=== PATIENT | male | born 1980 | race Two or more races ===

== ENCOUNTER 2020-01-19 18:15 | Inpatient (IN) | payer MEDICARE, MEDICAID ==
[2020-01-19] MEDS ORDERED: RINGERS SOLUTION,LACTATED 1,000 ML IV ONE (19:18)
[2020-01-19] MEDS ORDERED: MORPHINE SULFATE 10 MG/ML INJ IV ONE (19:19)
[2020-01-19] MEDS ORDERED: ONDANSETRON HCL INJ/PF 4 MG/2 ML SDV IV ONE (19:19)
--- NOTE | 2020-01-19 19:21 | ER Document Report ---
ED Medical Screen (RME) - General Chief Complaint: Back Pain Stated Complaint: BACK PAIN Time Seen by Provider: 01/19/20 19:15 Primary Care Provider: LEON CURTIS MD [Primary Care Provider] - Follow up as needed Mode of Arrival: Medic Information source: Patient Notes: HPI; 39-year-old male past medical history significant for sickle cell presents to the emergency room complaining of back pain and a sickle cell flare that started yesterday. States he has been taking his Percocet without relief. He denies any trauma or injury to his back. PE: Alert and oriented x3. Mild distress noted. Lungs are clear to auscultation without rales, rhonchi, wheezes. Heart: Regular rate rhythm without murmurs, rubs, gallops. Unable to do full exam in triage I have greeted and performed a rapid initial assessment of this patient. A comprehensive ED assessment and evaluation of the patient, analysis of test results and completion of the medical decision making process will be conducted by additional ED providers. I have specifically instructed the patient or family members with the patient to immediately return to any nursing staff should anything change in the patient's condition or with their chief complaint. TRAVEL OUTSIDE OF THE [place] IN LAST 30 DAYS: No - Related Data Allergies/Adverse Reactions: ampicillin [Ampicillin] Allergy (Mild, Verified 05/20/16 05:00) iodine [Iodine] Allergy (Verified 01/07/16 16:54) Past Medical History - Past Medical History Cardiac Medical History: Reports: Hx Heart Murmur Pulmonary Medical History: Reports: Hx Pneumonia Neurological Medical History: Denies: Hx Seizures Skin Medical History: Denies Hx MRSA Psychiatric Medical History: Denies: Hx Depression Past Surgical History: Reports: Hx Cholecystectomy, Hx Tonsillectomy - Immunizations Hx Diphtheria, Pertussis, Tetanus Vaccination: No Physical Exam - Vital signs Vitals: Temp Pulse Resp BP Pulse Ox 99.6 F 90 16 116/60 92 01/19/20 18:50 01/19/20 18:50 01/19/20 18:50 01/19/20 18:50 01/19/20 18:50 Course - Vital Signs Vital signs: Temp Pulse Resp BP Pulse Ox 99.6 F 90 16 116/60 92 01/19/20 18:50 01/19/20 18:50 01/19/20 18:50 01/19/20 18:50 01/19/20 18:50 Doctor's Discharge - Discharge Referrals: LEON CURTIS MD [Primary Care Provider] - Follow up as needed
[2020-01-19 20:52] LABS: ALBUMIN 5.3 g/dL (3.5-5.0); ALKALINE PHOSPHATASE 136 U/L (38-126); ANION GAP 9 (5-19); ASPARTATE AMINO TRANSFERASE 69 U/L (17-59); BILIRUBIN,DIRECT 2.3 mg/dL (0.0-0.4); BLOOD UREA NITROGEN 18 mg/dL (7-20); CALCIUM 9.7 mg/dL (8.4-10.2); CARBON DIOXIDE 24 mmol/L (22-30); CHLORIDE 104 mmol/L (98-107); GLUCOSE 117 mg/dL (75-110); POTASSIUM 5.1 mmol/L (3.6-5.0); TOTAL PROTEIN 8.6 g/dL (6.3-8.2)
[2020-01-19 22:11] LABS: HEMOGLOBIN 9.1 g/dL (13.5-17.0); MEAN CORPUSCULAR HEMOGLOBIN 45.6 pg (27.0-33.4); MEAN CORPUSCULAR HGB CONC 36.3 g/dL (32.0-36.0); PLATELET COUNT 320 10^3/uL (150-450); RED BLOOD COUNT 1.99 10^6/uL (4.35-5.55); RED CELL DISTRIBUTION WIDTH 15.9 % (11.5-14.0); RETICULOCYTE COUNT (AUTO) 15.11 % (0.66-2.85); WHITE BLOOD COUNT 11.4 10^3/uL (4.0-10.5)
[2020-01-19] MEDS ORDERED: HYDROMORPHONE HCL INJ/PF 2 MG/ML AMPULE IV ONE ×2 (22:19→23:49)
--- NOTE | 2020-01-19 22:24 | ER Document Report ---
ED General - General Chief Complaint: Sickle Cell Crisis Stated Complaint: BACK PAIN Time Seen by Provider: 01/19/20 19:15 Mode of Arrival: Medic Notes: Patient is a 39-year-old male with a history of sickle cell disease who comes emergency department for chief complaint of sharp pain in his back and worsening generalized body pain that started yesterday. He states he takes Percocet and he has been taking this without any relief. He denies trauma or injury to the back. He does report some vague shortness of breath and pain across his chest, denies headache, denies fever, denies vomiting. He follows with Dr. Narayan, he denies smoking, alcohol, recreational drugs, he denies any medical history other than sickle cell disease. TRAVEL OUTSIDE OF THE [place] IN LAST 30 DAYS: No - Related Data Allergies/Adverse Reactions: ampicillin [Ampicillin] Allergy (Mild, Verified 05/20/16 05:00) iodine [Iodine] Allergy (Verified 01/07/16 16:54) Home Medications: pcn, percocet Past Medical History - General Information source: Patient - Social History Smoking Status: Never Smoker Frequency of alcohol use: None Drug Abuse: None Lives with: Family Family History: Reviewed & Not Pertinent Patient has homicidal ideation: No - Past Medical History Cardiac Medical History: Reports: Hx Heart Murmur Pulmonary Medical History: Reports: Hx Pneumonia Neurological Medical History: Denies: Hx Seizures Skin Medical History: Denies Hx MRSA Psychiatric Medical History: Denies: Hx Depression Past Surgical History: Reports: Hx Cholecystectomy, Hx Tonsillectomy - Immunizations Hx Diphtheria, Pertussis, Tetanus Vaccination: No Hx Pneumococcal Vaccination: 04/11/15 Review of Systems - Review of Systems Constitutional: See HPI EENT: No symptoms reported Cardiovascular: No symptoms reported Respiratory: No symptoms reported Gastrointestinal: No symptoms reported Genitourinary: No symptoms reported Male Genitourinary: No symptoms reported Musculoskeletal: See HPI Skin: No symptoms reported Hematologic/Lymphatic: No symptoms reported Neurological/Psychological: No symptoms reported Physical Exam - Vital signs Vitals: Temp Pulse Resp BP Pulse Ox 99.6 F 90 16 116/60 92 01/19/20 18:50 01/19/20 18:50 01/19/20 18:50 01/19/20 18:50 01/19/20 18:50 - Notes Notes: GENERAL: Patient appears to be in pain, occasionally shifting uncomfortably, occasionally groaning. He is responsive and alert HEAD: Normocephalic, atraumatic. EYES: Pupils equal, round, and reactive to light. Extraocular movements intact. Sclera slightly icteric. ENT: Oral mucosa moist, tongue midline. Oropharynx unremarkable. Airway patent. NECK: Full range of motion. Supple. Trachea midline. No lymphadenopathy. LUNGS: Clear to auscultation bilaterally, no wheezes, rales, or rhonchi. No respiratory distress. Non-tender chest wall. HEART: Regular rate and rhythm. No murmur ABDOMEN: Soft, non-tender. Non-distended. EXTREMITIES: Moves all 4 extremities spontaneously. No edema, normal radial and dorsalis pedis pulses bilaterally. No cyanosis. BACK: no cervical, thoracic, lumbar midline tenderness. No saddle anesthesia, normal distal neurovascular exam. Moves all extremities in full range of motion. NEUROLOGICAL: Alert and oriented x3. Normal speech. Cranial nerves II through XII grossly intact. Strength 5/5 in all extremities. SKIN: Warm, dry, normal turgor. No rashes or lesions noted. Course - Re-evaluation Re-evalutation: Patient is obviously uncomfortable on exam but his lungs are clear, abdomen soft, he is not tachycardic, febrile, or toxic in appearance. He does have slight icteric appearance of the sclera. CBC shows borderline leukocytosis, hemoglobin with anemia similar to prior, reticulocyte count is elevated. Bilirubin is elevated especially indirect bilirubin suggesting hemolysis. Again abdomen is soft and benign on reevaluation, LFTs unremarkable, alk phos unremarkable. Patient has had a cholecystectomy. Chest x-ray with no acute findings, urinalysis unremarkable. On reevaluation patient is more comfortable but still has a lot of pain es pecially with movements. Based on his discomfort I discussed with patient, will discuss with hospitalist for admission. Patient follows with Dr. Jolly, Dr. Guzman is physical education teacher for him. I called spoke with Dr. Guzman, patient excepted to telemetry for admission. 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 Narayan). - Vital Signs Vital signs: Temp Pulse Resp BP Pulse Ox 99.6 F 90 20 113/62 99 01/19/20 18:50 07/10/20 18:50 01/20/20 02:00 01/20/20 02:00 01/20/20 02:00 - Laboratory Result Diagrams: 01/19/20 21:44 01/19/20 20:23 Laboratory results interpreted by me: 01/19/20 01/19/20 01/19/20 20:23 21:44 23:50 WBC 11.4 H RBC 1.99 L Hgb 9.1 L Hct 25.0 L MCV 126 H MCH 45.6 H MCHC 36.3 H RDW 15.9 H Reticulocyte # 0.300 H Basophils % (Manual) 3 H Absolute Eos (Manual) 0.7 H Abs Basophils (Manual) 0.3 H Retic Count (auto) 15.11 H Sodium 136.9 L Potassium 5.1 H Glucose 117 H Total Bilirubin 10.0 H Direct Bilirubin 2.3 H AST 69 H Alkaline Phosphatase 136 H Total Protein 8.6 H Albumin 5.3 H Urine Urobilinogen 4.0 H - EKG Interpretation by Me Additional EKG results interpreted by me: EKG shows sinus rhythm at a rate of 78, QTc 474. There appear to be some Q waves laterally and nonspecific intraventricular conduction delay, however this is unchanged from prior. No T wave inversions or ST segment changes in consecutive leads. Discharge - Discharge Clinical Impression: Sickle cell pain crisis Condition: Stable Disposition: ADMITTED INPATIENT Admitting Provider: Thomas Jolly Unit Admitted: Telemetry
[2020-01-19 22:34] LABS: ABSOLUTE LYMPHOCYTES# (MANUAL) 3.1 10^3/uL (0.5-4.7); BASOPHILS % (MANUAL) 3 % (0-2); EOSINOPHILS % (MANUAL) 6 % (0-6); LYMPHOCYTES % (MANUAL) 27 % (13-45); MONOCYTES % (MANUAL) 9 % (3-13); NUCLEATED RED BLOOD CELLS 5 /100 WBC (0); SEGMENTED NEUTROPHILS % (MAN) 55 % (42-78); TOTAL CELLS COUNTED 100
[2020-01-19 22:35] LABS: ANISOCYTOSIS 1+; HYPERSEGMENTED NEUTROPHILS PRESENT
[2020-01-19 22:36] LABS: PLATELET COMMENT ADEQUATE
[2020-01-19 22:47] LABS: BURR CELLS SLIGHT; OVALOCYTES 1+; POLYCHROMASIA SLIGHT; TARGET CELLS 1+
[2020-01-19 22:49] LABS: MEAN CORPUSCULAR VOLUME 126 fl (80-97)
[2020-01-19] MEDS ORDERED: ONDANSETRON HCL INJ/PF 4 MG/2 ML SDV ONE (23:02)
--- NOTE | 2020-01-19 23:14 | RADIOLOGY REPORT (SQ) ---
EXAM DESCRIPTION: X-ray, single AP portable view of the chest CLINICAL HISTORY: 39 years Male, sickle cell crisis, chest pain COMPARISON: Two views of the chest May 19, 2016 FINDINGS: Lungs: Ill-defined patchy calcification is seen projecting over the left heart border. The lungs are clear. No pneumothorax or pleural effusion. Mediastinum: Heart size is enlarged. This has increased in size when compared to the previous exam. Left chest port is in place with the tip of the catheter in the superior vena cava. There is splaying of the lisseth suggesting atrial enlargement. Bones: Osseous structures are stable IMPRESSION: Interval increase in size of the heart which is enlarged. Ill-defined calcifications projecting over the left heart border. Is unclear if this is within the lung or the myocardium. No pneumonia or edema.
[2020-01-20 00:10] LABS: APPEARANCE,URINE CLEAR; BILIRUBIN,URINE NEGATIVE (NEGATIVE); COLOR,URINE YELLOW; GLUCOSE, URINE NEGATIVE (NEGATIVE); KETONES,URINE NEGATIVE (NEGATIVE); LEUKOCYTE ESTERASE,URINE NEGATIVE (NEGATIVE); NITRITE,URINE NEGATIVE (NEGATIVE); PROTEIN,URINE NEGATIVE (NEGATIVE); URINE SPECIFIC GRAVITY 1.011
[2020-01-20] MEDS ORDERED: ACETAMINOPHEN 325 MG TABLET PO PRN (02:31)
[2020-01-20] MEDS ORDERED: ONDANSETRON HCL INJ/PF 4 MG/2 ML SDV IV PRN (02:31)
[2020-01-20] MEDS: HYDROMORPHONE HCL INJ/PF 2 MG/ML AMPULE IV PRN ×3 (04:19→20:04)
[2020-01-20] MEDS: PANTOPRAZOLE SODIUM 40 MG TABLET.DR PO SCH (06:06)
[2020-01-20] MEDS: NORMAL SALINE 1000 ML 1,000 ML IV PRN ×3 (06:51→23:54)
--- NOTE | 2020-01-20 09:53 | EKG REPORT ---
SEVERITY:- ABNORMAL ECG - SINUS RHYTHM NONSPECIFIC INTRAVENTRICULAR CONDUCTION DELAY LATERAL INFARCT, OLD CONSIDER ANTEROSEPTAL INFARCT LA ABNORMALITY : Confirmed by: Jamal Walker MD 20-Jan-2020 09:52:31
[2020-01-20] MEDS: DOCUSATE SODIUM 100 MG CAPSULE PO SCH (10:03)
[2020-01-20] MEDS: ENOXAPARIN SODIUM INJ 40 MG/0.4 ML DISP.SYRIN SUBCUT SCH (10:03)
[2020-01-20] MEDS ORDERED: POLYETHYLENE GLYCOL 3350 POWDER 17 GM/1 PACKET PO PRN (10:42)
--- NOTE | 2020-01-20 11:05 | PDOC CONSULTATION ---
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 Hemoglobin is 9. He is on Dilaudid 1 mg right now and still having considerable pain. Past Medical History Cardiac Medical History: Reports: Heart Murmur Pulmonary Medical History: Reports: Pneumonia Neurological Medical History: Denies: Seizures Psychiatric Medical History: Denies: Depression Hematology: Reports: Anemia, Sickle Cell Disease Past Surgical History Past Surgical History: Reports: Cholecystectomy, Tonsillectomy Social History Information Source: Patient Lives with: Family Smoking Status: Never Smoker Frequency of Alcohol Use: None Hx Recreational Drug Use: No Drugs: None Hx Prescription Drug Abuse: No - Advance Directive Resuscitation Status: Full Code Family History Family History: Reviewed & Not Pertinent Parental Family History Reviewed: Yes Children Family History Reviewed: Yes Sibling(s) Family History Reviewed.: Yes Medication/Allergy Home Medications: Hydroxyurea 1,000 mg PO BID #60 capsule 05/22/16 Penicillin V Potassium [Penicillin Vk 500 mg Tablet] 500 mg PO BID #60 tablet 05/22/16 Acetaminophen [Tylenol 325 mg Tablet] 650 mg PO Q4HP PRN 01/20/20 Folic Acid 1 mg PO DAILY 01/20/20 Allergies/Adverse Reactions: ampicillin [Ampicillin] Allergy (Mild, Verified 05/20/16 05:00) iodine [Iodine] Allergy (Verified 01/07/16 16:54) Review of Systems Constitutional: ABSENT: chills, fever(s), headache(s), weight gain, weight loss Eyes: ABSENT: visual disturbances Ears: ABSENT: hearing changes Cardiovascular: ABSENT: chest pain, dyspnea on exertion, edema, orthropnea, palpitations Respiratory: ABSENT: cough, hemoptysis Gastrointestinal: ABSENT: abdominal pain, constipation, diarrhea, hematemesis, hematochezia, nausea, vomiting Genitourinary: ABSENT: dysuria, hematuria Musculoskeletal: ABSENT: joint swelling Integumentary: ABSENT: rash, wounds Neurological: ABSENT: abnormal gait, abnormal speech, confusion, dizziness, focal weakness, syncope Psychiatric: ABSENT: anxiety, depression, homidical ideation, suicidal ideation Endocrine: ABSENT: cold intolerance, heat intolerance, polydipsia, polyuria Hematologic/Lymphatic: ABSENT: easy bleeding, easy bruising Physical Exam Vital Signs: Temp Pulse Resp BP Pulse Ox 98.1 F 84 14 112/62 93 01/20/20 07:28 01/20/20 07:28 01/20/20 07:28 01/20/20 07:28 01/20/20 07:28 Intake & Output 01/19/20 01/20/20 01/21/20 06:59 06:59 06:59 Intake Total 1000 Output Total 975 Balance 25 Weight 89.6 kg General appearance: PRESENT: no acute distress, well-developed, well-nourished Head exam: PRESENT: atraumatic, normocephalic Eye exam: PRESENT: conjunctiva pink, EOMI, PERRLA. ABSENT: scleral icterus Ear exam: PRESENT: normal external ear exam Mouth exam: PRESENT: moist, tongue midline Neck exam: ABSENT: carotid bruit, JVD, lymphadenopathy, thyromegaly Respiratory exam: PRESENT: clear to auscultation arron. ABSENT: rales, rhonchi, wheezes Cardiovascular exam: PRESENT: RRR. ABSENT: diastolic murmur, rubs, systolic murmur Pulses: PRESENT: normal dorsalis pedis pul Vascular exam: PRESENT: normal capillary refill GI/Abdominal exam: PRESENT: normal bowel sounds, soft. ABSENT: distended, guarding, mass, organolmegaly, rebound, tenderness Rectal exam: PRESENT: deferred Extremities exam: PRESENT: full ROM. ABSENT: calf tenderness, clubbing, pedal edema Neurological exam: PRESENT: alert, awake, oriented to person, oriented to place, oriented to time, oriented to situation, CN II-XII grossly intact. ABSENT: motor sensory deficit Psychiatric exam: PRESENT: appropriate affect, normal mood. ABSENT: homicidal ideation, suicidal ideation Skin exam: PRESENT: dry, intact, warm. ABSENT: cyanosis, rash Results Laboratory Results: 01/19/20 21:44 01/19/20 20:23 01/19/20 01/19/20 01/19/20 20:23 21:44 23:50 WBC 11.4 H RBC 1.99 L Hgb 9.1 L Hct 25.0 L MCV 126 H MCH 45.6 H MCHC 36.3 H RDW 15.9 H Plt Count 320 Seg Neutrophils % Not Reportable Retic Count (auto) 15.11 H Sodium 136.9 L Potassium 5.1 H Chloride 104 Carbon Dioxide 24 Anion Gap 9 BUN 18 Creatinine 0.77 Est GFR ( Amer) > 60 Glucose 117 H Calcium 9.7 Total Bilirubin 10.0 H AST 69 H Alkaline Phosphatase 136 H Total Protein 8.6 H Albumin 5.3 H Urine Color YELLOW Urine Appearance CLEAR Urine pH 6.0 Ur Specific [place] 1.011 Urine Protein NEGATIVE Urine Glucose (UA) NEGATIVE Urine Ketones NEGATIVE Urine Blood NEGATIVE Urine Nitrite NEGATIVE Ur Leukocyte Esterase NEGATIVE Urine WBC (Auto) 0 Urine RBC (Auto) 1 01/19/20 21:44 Troponin I < 0.012 Impressions: Chest X-Ray 01/19/20 22:20 IMPRESSION: Interval increase in size of the heart which is enlarged. Ill-defined calcifications projecting over the left heart border. Is unclear if this is within the lung or the myocardium. No pneumonia or edema. Assessment & Plan - Diagnosis (1) Sickle cell pain crisis Is this a current diagnosis for this admission?: Yes Plan: Sickle cell pain crisis, increase Dilaudid 2 mg IV every 2 hours. Continue other supportive measures. K pad for comfort. 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 - Time Time Spent: 50 to 70 Minutes - Inpatient Certification Based on my medical assessment, after consideration of the patient's comorbidities, presenting symptoms, or acuity I expect that the services needed warrant INPATIENT care.: Yes I certify that my determination is in accordance with my understanding of Medicare's requirements for reasonable and necessary INPATIENT services [42 CFR 412.3e].: Yes Medical Necessity: Need For IV Fluids, Need for Pain Control
--- NOTE | 2020-01-20 12:04 | PDOC H&P ---
History of Present Illness Admission Date/PCP: 01/20/20 02:37 LEON CURTIS Patient complains of: Sickle cell crisis History of Present Illness: BELLO HUI is a 39 year old male Is a 39-year-old male with a patient of Dr. Curtis came to the emergency dep artment with acute complaint of back pain and body ache and patient's diagnosed with this acute sickle cell crisis with a reticulocyte count was elevated Patient was giving the IV pain medications and IV fluid and admitting in the hospital Patient is otherwise feeling better Patient still have a pain currently requiring IV pain medications Patient also seen by game protector Patient's denied any fever no chills Patient's denied any contact with any COVID Denied any respiratory symptoms Past Medical History Cardiac Medical History: Reports: Heart Murmur Pulmonary Medical History: Reports: Pneumonia Neurological Medical History: Denies: Seizures Psychiatric Medical History: Denies: Depression Hematology: Reports: Anemia, Sickle Cell Disease Past Surgical History Past Surgical History: Reports: Cholecystectomy, Tonsillectomy Social History Information Source: Patient Lives with: Family Smoking Status: Never Smoker Frequency of Alcohol Use: None Hx Recreational Drug Use: No Drugs: None Hx Prescription Drug Abuse: No - Advance Directive Resuscitation Status: Full Code Family History Family History: Reviewed & Not Pertinent Parental Family History Reviewed: Yes Children Family History Reviewed: Yes Sibling(s) Family History Reviewed.: Yes Medication/Allergy Home Medications: Hydroxyurea 1,000 mg PO BID #60 capsule 05/22/16 Penicillin V Potassium [Penicillin Vk 500 mg Tablet] 500 mg PO BID #60 tablet 05/22/16 Acetaminophen [Tylenol 325 mg Tablet] 650 mg PO Q4HP PRN 01/20/20 Folic Acid 1 mg PO DAILY 01/20/20 Allergies/Adverse Reactions: ampicillin [Ampicillin] Allergy (Mild, Verified 05/20/16 05:00) iodine [Iodine] Allergy (Verified 01/07/16 16:54) Review of Systems Constitutional: ABSENT: chills, fever(s), headache(s), weight gain, weight loss Eyes: ABSENT: visual disturbances Ears: ABSENT: hearing changes Cardiovascular: ABSENT: chest pain, dyspnea on exertion, edema, orthropnea, palpitations Respiratory: ABSENT: cough, hemoptysis Gastrointestinal: ABSENT: abdominal pain, constipation, diarrhea, hematemesis, hematochezia, nausea, vomiting Genitourinary: ABSENT: dysuria, hematuria Musculoskeletal: ABSENT: joint swelling Integumentary: ABSENT: rash, wounds Neurological: ABSENT: abnormal gait, abnormal speech, confusion, dizziness, focal weakness, syncope Psychiatric: ABSENT: anxiety, depression, homidical ideation, suicidal ideation Endocrine: ABSENT: cold intolerance, heat intolerance, menstrual abnormalities, polydipsia, polyuria Hematologic/Lymphatic: ABSENT: easy bleeding, easy bruising, lymphadenopathy Physical Exam Vital Signs: Temp Pulse Resp BP Pulse Ox 98.1 F 84 14 112/62 93 01/20/20 07:28 01/20/20 07:28 01/20/20 07:28 01/20/20 07:28 01/20/20 07:28 Intake & Output 01/19/20 01/20/20 01/21/20 06:59 06:59 06:59 Intake Total 1000 Output Total 975 Balance 25 Weight 89.6 kg General appearance: PRESENT: no acute distress, well-developed, well-nourished Head exam: PRESENT: atraumatic, normocephalic Eye exam: PRESENT: conjunctiva pink, EOMI, PERRLA. ABSENT: scleral icterus Ear exam: PRESENT: normal external ear exam Mouth exam: PRESENT: moist, tongue midline Neck exam: PRESENT: full ROM. ABSENT: carotid bruit, JVD, lymphadenopathy, thyromegaly Respiratory exam: PRESENT: clear to auscultation arron Cardiovascular exam: PRESENT: RRR. ABSENT: diastolic murmur, rubs, systolic murmur Pulses: PRESENT: normal dorsalis pedis pul, +2 pedal pulses bilateral Vascular exam: PRESENT: normal capillary refill GI/Abdominal exam: PRESENT: normal bowel sounds, soft. ABSENT: distended, guarding, mass, organolmegaly, rebound, tenderness Rectal exam: PRESENT: deferred Neurological exam: PRESENT: alert, awake, oriented to person, oriented to place, oriented to time, oriented to situation, CN II-XII grossly intact. ABSENT: motor sensory deficit Psychiatric exam: PRESENT: appropriate affect, normal mood. ABSENT: homicidal ideation, suicidal ideation Skin exam: PRESENT: dry, intact, warm. ABSENT: cyanosis, rash Results Laboratory Results: 01/19/20 21:44 01/19/20 20:23 07/10/20 07/10/20 07/10/20 20:23 21:44 23:50 WBC 11.4 H RBC 1.99 L Hgb 9.1 L Hct 25.0 L MCV 126 H MCH 45.6 H MCHC 36.3 H RDW 15.9 H Plt Count 320 Seg Neutrophils % Not Reportable Retic Count (auto) 15.11 H Sodium 136.9 L Potassium 5.1 H Chloride 104 Carbon Dioxide 24 Anion Gap 9 BUN 18 Creatinine 0.77 Est GFR ( Amer) > 60 Glucose 117 H Calcium 9.7 Total Bilirubin 10.0 H AST 69 H Alkaline Phosphatase 136 H Total Protein 8.6 H Albumin 5.3 H Urine Color YELLOW Urine Appearance CLEAR Urine pH 6.0 Ur Specific [place] 1.011 Urine Protein NEGATIVE Urine Glucose (UA) NEGATIVE Urine Ketones NEGATIVE Urine Blood NEGATIVE Urine Nitrite NEGATIVE Ur Leukocyte Esterase NEGATIVE Urine WBC (Auto) 0 Urine RBC (Auto) 1 01/19/20 21:44 Troponin I < 0.012 Impressions: Chest X-Ray 01/19/20 22:20 IMPRESSION: Interval increase in size of the heart which is enlarged. Ill-defined calcifications projecting over the left heart border. Is unclear if this is within the lung or the myocardium. No pneumonia or edema. 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 - Other hemoglobinopathies Is this a current diagnosis for this admission?: Yes (3) Constipation Is this a current diagnosis for this admission?: Yes - Time Time Spent: 30 to 50 Minutes Medications reviewed and adjusted accordingly: Yes Anticipated discharge: Home Within: Other - Inpatient Certification Based on my medical assessment, after consideration of the patient's comorbidities, presenting symptoms, or acuity I expect that the services needed warrant INPATIENT care.: Yes I certify that my determination is in accordance with my understanding of Medicare's requirements for reasonable and necessary INPATIENT services [42 CFR 412.3e].: Yes Medical Necessity: Failure to Improve With Outpatient Therapy, Need For IV Fluids, Need for Pain Control Post Hospital Care: D/C Buffet Server Documentation - Plan Summary Plan Summary: Admit the patient in the telemetry bed IV pain medications IV fluids Consult game protector To the cultures to rule out any underlying infections
[2020-01-20 13:19] LABS: APPEARANCE,URINE CLEAR; BILIRUBIN,URINE NEGATIVE (NEGATIVE); COLOR,URINE YELLOW; GLUCOSE, URINE NEGATIVE (NEGATIVE); KETONES,URINE NEGATIVE (NEGATIVE); LEUKOCYTE ESTERASE,URINE NEGATIVE (NEGATIVE); NITRITE,URINE NEGATIVE (NEGATIVE); PROTEIN,URINE NEGATIVE (NEGATIVE)
[2020-01-20] MEDS: OXYCODONE-ACETAMINOPHEN 5-325 MG TABLET PO PRN (23:53)
[2020-01-21] MEDS: HYDROMORPHONE HCL INJ/PF 2 MG/ML AMPULE IV PRN ×6 (01:13→23:25)
[2020-01-21] MEDS: PANTOPRAZOLE SODIUM 40 MG TABLET.DR PO SCH (05:03)
[2020-01-21 05:25] LABS: HEMATOCRIT 22.3 % (37.9-51.0); MEAN CORPUSCULAR HEMOGLOBIN 43.8 pg (27.0-33.4); MEAN CORPUSCULAR HGB CONC 35.5 g/dL (32.0-36.0); MEAN CORPUSCULAR VOLUME 124 fl (80-97); PLATELET COUNT 304 10^3/uL (150-450); RED BLOOD COUNT 1.81 10^6/uL (4.35-5.55); RED CELL DISTRIBUTION WIDTH 17.2 % (11.5-14.0); WHITE BLOOD COUNT 12.5 10^3/uL (4.0-10.5)
[2020-01-21 05:39] LABS: ALBUMIN 4.3 g/dL (3.5-5.0); ALKALINE PHOSPHATASE 97 U/L (38-126); ANION GAP 7 (5-19); ASPARTATE AMINO TRANSFERASE 49 U/L (17-59); BILIRUBIN,DIRECT 1.5 mg/dL (0.0-0.4); BILIRUBIN,TOTAL 8.5 mg/dL (0.2-1.3); BLOOD UREA NITROGEN 10 mg/dL (7-20); CALCIUM 9.2 mg/dL (8.4-10.2); CARBON DIOXIDE 24 mmol/L (22-30); CHLORIDE 108 mmol/L (98-107); GLUCOSE 91 mg/dL (75-110); POTASSIUM 4.3 mmol/L (3.6-5.0); TOTAL PROTEIN 6.6 g/dL (6.3-8.2)
[2020-01-21 06:07] LABS: ABSOLUTE LYMPHOCYTES# (MANUAL) 4.8 10^3/uL (0.5-4.7); ABSOLUTE MONOCYTES # (MANUAL) 0.6 10^3/uL (0.1-1.4); ANISOCYTOSIS 1+; BASOPHILS % (MANUAL) 0 % (0-2); EOSINOPHILS % (MANUAL) 3 % (0-6); LYMPHOCYTES % (MANUAL) 38 % (13-45); MONOCYTES % (MANUAL) 5 % (3-13); NUCLEATED RED BLOOD CELLS 6 /100 WBC (0); PLATELET COMMENT ADEQUATE; SEGMENTED NEUTROPHILS % (MAN) 54 % (42-78); TOTAL CELLS COUNTED 100
[2020-01-21 06:14] LABS: HYPERSEGMENTED NEUTROPHILS PRESENT
[2020-01-21 06:15] LABS: POLYCHROMASIA 1+; SICKLE RED CELLS 1+; TARGET CELLS SLIGHT
[2020-01-21] MEDS: NORMAL SALINE 1000 ML 1,000 ML IV PRN ×3 (06:40→23:25)
--- NOTE | 2020-01-21 09:53 | PDOC PROGRESS REPORT ---
Subjective Progress Note for:: 01/21/20 Subjective:: Patient is currently doing fair Patient still having pain but manageable with the current medications Patient asking for any blood transfusions Patient hemoglobin is 7.9 Denied any chest pain No short of breath Reason For Visit: SICKLE CELL CRISIS Physical Exam Vital Signs: Temp Pulse Resp BP Pulse Ox 98.8 F 78 18 125/66 96 01/21/20 08:54 01/21/20 08:54 01/21/20 08:54 01/21/20 08:54 01/21/20 08:54 Intake & Output 01/20/20 01/21/20 01/22/20 06:59 06:59 06:59 Intake Total 1000 3860 Output Total 975 3100 Balance 25 760 Weight 89.6 kg 88.6 kg General appearance: PRESENT: no acute distress, well-developed, well-nourished Head exam: PRESENT: atraumatic, normocephalic Eye exam: PRESENT: conjunctiva pink, EOMI, PERRLA. ABSENT: scleral icterus Ear exam: PRESENT: normal external ear exam Mouth exam: PRESENT: moist, tongue midline Neck exam: PRESENT: full ROM. ABSENT: carotid bruit, JVD, lymphadenopathy, thyromegaly Respiratory exam: PRESENT: clear to auscultation arron Cardiovascular exam: PRESENT: RRR. ABSENT: diastolic murmur, rubs, systolic murmur Pulses: PRESENT: normal dorsalis pedis pul, +2 pedal pulses bilateral Vascular exam: PRESENT: normal capillary refill GI/Abdominal exam: PRESENT: normal bowel sounds, soft. ABSENT: distended, guarding, mass, organolmegaly, rebound, tenderness Rectal exam: PRESENT: deferred Neurological exam: PRESENT: alert, awake, oriented to person, oriented to place, oriented to time, oriented to situation, CN II-XII grossly intact. ABSENT: motor sensory deficit Psychiatric exam: PRESENT: appropriate affect, normal mood. ABSENT: homicidal ideation, suicidal ideation Skin exam: PRESENT: dry, intact, warm. ABSENT: cyanosis, rash Results Laboratory Results: 01/21/20 04:24 01/21/20 04:24 01/20/20 01/21/20 01/21/20 11:45 04:24 04:24 WBC 12.5 H RBC 1.81 L Hgb 7.9 L Hct 22.3 L MCV 124 H MCH 43.8 H MCHC 35.5 RDW 17.2 H Plt Count 304 Seg Neutrophils % Not Reportable Sodium 138.8 Potassium 4.3 Chloride 108 H Carbon Dioxide 24 Anion Gap 7 BUN 10 Creatinine 0.62 Est GFR ( Amer) > 60 Glucose 91 Calcium 9.2 Total Bilirubin 8.5 H AST 49 Alkaline Phosphatase 97 Total Protein 6.6 Albumin 4.3 Urine Color YELLOW Urine Appearance CLEAR Urine pH 6.0 Ur Specific Craig 1.010 Urine Protein NEGATIVE Urine Glucose (UA) NEGATIVE Urine Ketones NEGATIVE Urine Blood NEGATIVE Urine Nitrite NEGATIVE Ur Leukocyte Esterase NEGATIVE Urine WBC (Auto) 2 Urine RBC (Auto) 0 01/19/20 21:44 Troponin I < 0.012 Impressions: Chest X-Ray 01/19/20 22:20 IMPRESSION: Interval increase in size of the heart which is enlarged. Ill-defined calcifications projecting over the left heart border. Is unclear if this is within the lung or the myocardium. No pneumonia or edema. 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
[2020-01-21] MEDS: DOCUSATE SODIUM 100 MG CAPSULE PO SCH (10:37)
[2020-01-21] MEDS: ENOXAPARIN SODIUM INJ 40 MG/0.4 ML DISP.SYRIN SUBCUT SCH (10:37)
[2020-01-22] MEDS: HYDROMORPHONE HCL INJ/PF 2 MG/ML AMPULE IV PRN ×5 (02:45→20:23)
[2020-01-22] MEDS ORDERED: DIPHENHYDRAMINE HCL 25 MG CAPSULE PO PRN (05:00)
[2020-01-22] MEDS ORDERED: ACETAMINOPHEN 325 MG TABLET PO PRN ×2 (05:00→17:25)
[2020-01-22] MEDS: PANTOPRAZOLE SODIUM 40 MG TABLET.DR PO SCH (05:41)
[2020-01-22] MEDS: NORMAL SALINE 1000 ML 1,000 ML IV PRN (05:49)
[2020-01-22 06:02] LABS: HEMATOCRIT 21.6 % (37.9-51.0); MEAN CORPUSCULAR HEMOGLOBIN 43.6 pg (27.0-33.4); MEAN CORPUSCULAR HGB CONC 34.8 g/dL (32.0-36.0); MEAN CORPUSCULAR VOLUME 125 fl (80-97); PLATELET COUNT 320 10^3/uL (150-450); RED BLOOD COUNT 1.73 10^6/uL (4.35-5.55); RED CELL DISTRIBUTION WIDTH 16.4 % (11.5-14.0); WHITE BLOOD COUNT 11.8 10^3/uL (4.0-10.5)
[2020-01-22 07:05] LABS: HEMOGLOBIN 7.5 g/dL (13.5-17.0)
[2020-01-22 07:08] LABS: ABSOLUTE LYMPHOCYTES# (MANUAL) 3.3 10^3/uL (0.5-4.7); ABSOLUTE MONOCYTES # (MANUAL) 0.5 10^3/uL (0.1-1.4); BASOPHILS % (MANUAL) 1 % (0-2); EOSINOPHILS % (MANUAL) 8 % (0-6); LYMPHOCYTES % (MANUAL) 28 % (13-45); MONOCYTES % (MANUAL) 4 % (3-13); NUCLEATED RED BLOOD CELLS 5 /100 WBC (0); SEGMENTED NEUTROPHILS % (MAN) 59 % (42-78); TOTAL CELLS COUNTED 100
[2020-01-22 07:13] LABS: ANISOCYTOSIS 1+; HOWELL-JOLLY BODIES PRESENT; OVALOCYTES SLIGHT; PAPPENHEIMER BODIES PRESENT; POIKILOCYTOSIS 1+; POLYCHROMASIA 2+; SICKLE RED CELLS 2+; TARGET CELLS SLIGHT
[2020-01-22 07:14] LABS: PLATELET COMMENT ADEQUATE; PLATELET LARGE PRESENT
--- NOTE | 2020-01-22 08:07 | PDOC PROGRESS REPORT ---
Subjective Progress Note for:: 01/22/20 Subjective:: Still having considerable pain. Has not yet had a bowel movement. Hemoglobin dropped to 7.5 today. Reason For Visit: SICKLE CELL CRISIS Physical Exam Vital Signs: Temp Pulse Resp BP Pulse Ox 98.8 F 81 18 117/60 95 01/22/20 00:00 01/22/20 02:00 01/22/20 00:00 01/22/20 00:00 01/22/20 00:00 Intake & Output 01/21/20 01/22/20 01/23/20 06:59 06:59 06:59 Intake Total 3860 3408 Output Total 3100 2725 Balance 760 683 Weight 88.6 kg 88.2 kg General appearance: PRESENT: no acute distress, well-developed, well-nourished Head exam: PRESENT: atraumatic, normocephalic Eye exam: PRESENT: conjunctiva pink, EOMI, PERRLA. ABSENT: scleral icterus Ear exam: PRESENT: normal external ear exam Mouth exam: PRESENT: moist, tongue midline Neck exam: ABSENT: carotid bruit, JVD, lymphadenopathy, thyromegaly Respiratory exam: PRESENT: clear to auscultation arron. ABSENT: rales, rhonchi, wheezes Cardiovascular exam: PRESENT: RRR. ABSENT: diastolic murmur, rubs, systolic murmur Pulses: PRESENT: normal dorsalis pedis pul Vascular exam: PRESENT: normal capillary refill GI/Abdominal exam: PRESENT: normal bowel sounds, soft. ABSENT: distended, guarding, mass, organolmegaly, rebound, tenderness Rectal exam: PRESENT: deferred Extremities exam: PRESENT: full ROM. ABSENT: calf tenderness, clubbing, pedal edema Neurological exam: PRESENT: alert, awake, oriented to person, oriented to place, oriented to time, oriented to situation, CN II-XII grossly intact. ABSENT: motor sensory deficit Psychiatric exam: PRESENT: appropriate affect, normal mood. ABSENT: homicidal ideation, suicidal ideation Skin exam: PRESENT: dry, intact, warm. ABSENT: cyanosis, rash Results Laboratory Results: 01/22/20 05:45 01/21/20 04:24 01/22/20 05:45 WBC 11.8 H RBC 1.73 L Hgb 7.5 L Hct 21.6 L MCV 125 H MCH 43.6 H MCHC 34.8 RDW 16.4 H Plt Count 320 Seg Neutrophils % Not Reportable 01/19/20 21:44 Troponin I < 0.012 Impressions: Chest X-Ray 01/19/20 22:20 IMPRESSION: Interval increase in size of the heart which is enlarged. Ill-defined calcifications projecting over the left heart border. Is unclear if this is within the lung or the myocardium. No pneumonia or edema. Assessment & Plan - Diagnosis (1) Sickle cell pain crisis Is this a current diagnosis for this admission?: Yes Plan: Still severe, increase Dilaudid, started bowel regimen but will need enema. I added that today. 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 Plan to transfuse today as his hemoglobin usually is 9-10. - Time Time Spent with patient: 25-34 minutes
[2020-01-22 08:39] LABS: HEMOGLOBIN 7.9 g/dL (13.5-17.0)
[2020-01-22] MEDS ORDERED: HYDROMORPHONE HCL INJ/PF 2 MG/ML AMPULE IV PRN (09:49)
[2020-01-22] MEDS ORDERED: FUROSEMIDE INJ/PF 20 MG/2 ML SDV IV PRN (09:50)
[2020-01-22] MEDS ORDERED: ONDANSETRON HCL INJ/PF 4 MG/2 ML SDV IV PRN (10:00)
[2020-01-22] MEDS ORDERED: NA PHOS,M-B/NA PHOS,DI-BA (ADULT) 133 ML ENEMA PR ONE (10:00)
[2020-01-22] MEDS: ENOXAPARIN SODIUM INJ 40 MG/0.4 ML DISP.SYRIN SUBCUT SCH (10:11)
[2020-01-22] MEDS: DOCUSATE SODIUM 100 MG CAPSULE PO SCH (10:11)
[2020-01-22 13:34] LABS: PATH REVIEW PATHOLOGIST REVIEWED
[2020-01-22] MEDS: OXYCODONE-ACETAMINOPHEN 5-325 MG TABLET PO PRN (15:25)
--- NOTE | 2020-01-22 17:24 | PDOC PROGRESS REPORT ---
Subjective Progress Note for:: 01/22/20 Subjective:: Patient reported continue left flank region pain. Not feeling well over last 3 days. He denied any fever or chills. No chest pain or difficulty with breathing. No nausea or vomiting. Still constipated. No urinary symptoms. Reason For Visit: SICKLE CELL CRISIS Physical Exam Vital Signs: Temp Pulse Resp BP Pulse Ox 98.6 F 69 16 110/58 L 97 01/22/20 16:27 01/22/20 16:27 01/22/20 16:27 01/22/20 16:27 01/22/20 16:27 Intake & Output 01/21/20 01/22/20 01/23/20 06:59 06:59 06:59 Intake Total 3860 3408 536 Output Total 3100 2725 425 Balance 760 683 111 Weight 88.6 kg 88.2 kg General appearance: PRESENT: no acute distress Head exam: PRESENT: atraumatic, normocephalic Eye exam: PRESENT: conjunctiva pink, scleral icterus - slight Ear exam: PRESENT: normal external ear exam Mouth exam: PRESENT: moist Respiratory exam: PRESENT: chest wall tenderness Cardiovascular exam: PRESENT: RRR, +S1, +S2. ABSENT: diastolic murmur, rubs, systolic murmur Vascular exam: PRESENT: pallor GI/Abdominal exam: PRESENT: normal bowel sounds, soft, tenderness Extremities exam: ABSENT: pedal edema Neurological exam: PRESENT: alert, awake, oriented to person, oriented to place, oriented to time, oriented to situation, CN II-XII grossly intact. ABSENT: motor sensory deficit Psychiatric exam: PRESENT: appropriate affect, normal mood. ABSENT: homicidal ideation, suicidal ideation Skin exam: PRESENT: dry, warm Results Laboratory Results: 01/22/20 05:45 01/21/20 04:24 01/21/20 01/22/20 01/22/20 04:24 05:45 10:08 WBC 11.8 H RBC 1.73 L Hgb 7.9 L 7.5 L Hct 21.6 L MCV 125 H MCH 43.6 H MCHC 34.8 RDW 16.4 H Plt Count 320 Seg Neutrophils % Not Reportable Blood Type O POSITIVE Antibody Screen NEGATIVE 01/19/20 21:44 Troponin I < 0.012 Impressions: Chest X-Ray 01/19/20 22:20 IMPRESSION: Interval increase in size of the heart which is enlarged. Ill-defined calcifications projecting over the left heart border. Is unclear if this is within the lung or the myocardium. No pneumonia or edema. Assessment & Plan - Diagnosis (1) Sickle cell anemia with crisis Is this a current diagnosis for this admission?: Yes Plan: Continue IV hydration and pain management. 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 Follow up on post transfusion CBC evaluation. (3) Constipation Qualifiers: Constipation type: chronic idiopathic constipation Qualified Code(s): K59.04 - Chronic idiopathic constipation Is this a current diagnosis for this admission?: Yes Plan: Obtain KUB abdomen if suggestive of significant fecal burden we will give Mag citrate 30ml po x 1 dose and Dulcolax suppository 10 mg NC x 1 dose. - Time Time Spent with patient: 25-34 minutes Level of Care: TELE Medications reviewed and adjusted accordingly: Yes Anticipated discharge: Home Within: Other - Inpatient Certification Based on my medical assessment, after consideration of the patient's comorbidities, presenting symptoms, or acuity I expect that the services needed warrant INPATIENT care.: Yes I certify that my determination is in accordance with my understanding of Medicare's requirements for reasonable and necessary INPATIENT services [42 CFR 412.3e].: Yes Medical Necessity: Significant Comorbidiites Make Outpatient Treatment Too Risky, Need Close Monitoring Due to Risk of Patient Decompensation, Need For IV Fluids, Need For Continuous Telemetry Monitoring, Need for Pain Control, Risk of Complication if Not Cared For in Hospital, Risk of Diagnosis Which Will Require Inpatient Eval/Care/Monitoring Post Hospital 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
[2020-01-22] MEDS: HYDROXYUREA 500 MG CAPSULE PO SCH (18:53)
[2020-01-22] MEDS: PENICILLIN V POTASSIUM 500 MG TABLET PO SCH (18:53)
--- NOTE | 2020-01-22 19:02 | RADIOLOGY REPORT (SQ) ---
EXAM DESCRIPTION: KUB/ABDOMEN (SINGLE VIEW) IMAGES COMPLETED DATE/TIME: 01/22/2020 6:50 pm REASON FOR STUDY: Constipation COMPARISON: 06/12/2015 NUMBER OF VIEWS: One view. TECHNIQUE: Supine radiographic image of the abdomen acquired. LIMITATIONS: None. FINDINGS: BOWEL GAS PATTERN: Nonobstructive pattern. Considerable retained stool. CALCIFICATIONS: No suspicious calcifications. SOFT TISSUES: No gross mass or suggestion of organomegaly. HARDWARE: None in the abdomen. BONES: No acute fracture. No worrisome bone lesions. OTHER: No other significant finding. IMPRESSION: Constipation. TECHNICAL DOCUMENTATION: JOB ID: [id number] 2010 [employer]- All Rights Reserved Reading location - IP/workstation name: [email or web address]
[2020-01-23] MEDS: PANTOPRAZOLE SODIUM 40 MG TABLET.DR PO SCH (05:58)
[2020-01-23 07:51] LABS: HEMATOCRIT 28.6 % (37.9-51.0); MEAN CORPUSCULAR HEMOGLOBIN 40.8 pg (27.0-33.4); MEAN CORPUSCULAR HGB CONC 36.9 g/dL (32.0-36.0); PLATELET COUNT 310 10^3/uL (150-450); RED BLOOD COUNT 2.59 10^6/uL (4.35-5.55); RED CELL DISTRIBUTION WIDTH 26.3 % (11.5-14.0); WHITE BLOOD COUNT 9.9 10^3/uL (4.0-10.5)
--- NOTE | 2020-01-23 07:55 | PDOC PROGRESS REPORT ---
Subjective Progress Note for:: 01/23/20 Subjective:: Patient states that he has not yet had a bowel movement. No change in the pain. No other complaints. Reason For Visit: SICKLE CELL CRISIS Physical Exam Vital Signs: Temp Pulse Resp BP Pulse Ox 98.0 F 81 16 86/51 L 97 01/23/20 00:33 01/23/20 02:00 01/23/20 00:33 01/23/20 00:33 01/23/20 00:33 Intake & Output 01/22/20 01/23/20 01/24/20 06:59 06:59 06:59 Intake Total 3408 536 Output Total 2726 3695 Balance 683 -1789 Weight 88.2 kg 88.2 kg General appearance: PRESENT: no acute distress, well-developed, well-nourished Exam: 39 year old male up in the bathroom shaving. Head exam: PRESENT: atraumatic, normocephalic Respiratory exam: PRESENT: unlabored Musculoskeletal exam: PRESENT: normal inspection Neurological exam: PRESENT: alert, awake Psychiatric exam: PRESENT: appropriate affect Skin exam: PRESENT: normal color Results Laboratory Results: 01/21/20 04:24 01/21/20 01/22/20 04:24 10:08 Hgb 7.9 L Blood Type O POSITIVE Antibody Screen NEGATIVE 01/19/20 21:44 Troponin I < 0.012 Impressions: Chest X-Ray 01/19/20 22:20 IMPRESSION: Interval increase in size of the heart which is enlarged. Ill-defined calcifications projecting over the left heart border. Is unclear if this is within the lung or the myocardium. No pneumonia or edema. KUB X-Ray 01/22/20 00:00 IMPRESSION: Constipation. Assessment & Plan - Diagnosis (1) Sickle cell pain crisis Is this a current diagnosis for this admission?: Yes Plan: Labs are more stable. Patient remains comfortable with current pain regimen. Continue to work on the constipation issue. - Time Time Spent with patient: Less than 15 minutes
[2020-01-23] MEDS ORDERED: MAGNESIUM CITRATE 296 ML BOTTLE PO ONE (09:00)
[2020-01-23] MEDS ORDERED: BISACODYL 10 MG SUPP.RECT PR ONE (09:00)
[2020-01-23 09:01] LABS: HEMOGLOBIN 10.6 g/dL (13.5-17.0)
[2020-01-23 09:02] LABS: MEAN CORPUSCULAR VOLUME 111 fl (80-97)
[2020-01-23 09:03] LABS: ABSOLUTE LYMPHOCYTES# (MANUAL) 1.4 10^3/uL (0.5-4.7); ABSOLUTE MONOCYTES # (MANUAL) 0.7 10^3/uL (0.1-1.4); BASOPHILS % (MANUAL) 0 % (0-2); EOSINOPHILS % (MANUAL) 6 % (0-6); LYMPHOCYTES % (MANUAL) 13 % (13-45); MONOCYTES % (MANUAL) 7 % (3-13); SEGMENTED NEUTROPHILS % (MAN) 73 % (42-78); TOTAL CELLS COUNTED 100
[2020-01-23 09:05] LABS: ANISOCYTOSIS 3+; OVALOCYTES 1+; SICKLE RED CELLS SLIGHT
[2020-01-23 09:06] LABS: PLATELET COMMENT ADEQUATE; POIKILOCYTOSIS 2+; POLYCHROMASIA 1+; TEAR DROP CELLS SLIGHT
[2020-01-23] MEDS: ENOXAPARIN SODIUM INJ 40 MG/0.4 ML DISP.SYRIN SUBCUT SCH (09:46)
[2020-01-23] MEDS: HYDROXYUREA 500 MG CAPSULE PO SCH ×2 (09:46→17:11)
[2020-01-23] MEDS: DOCUSATE SODIUM 100 MG CAPSULE PO SCH (09:46)
[2020-01-23] MEDS: FOLIC ACID 1 MG TABLET PO SCH (09:46)
[2020-01-23] MEDS: PENICILLIN V POTASSIUM 500 MG TABLET PO SCH ×2 (09:46→17:11)
[2020-01-23] MEDS ORDERED: OXYCODONE-ACETAMINOPHEN 5-325 MG TABLET PO PRN ×2 (17:00→17:01)
--- NOTE | 2020-01-23 17:00 | PDOC PROGRESS REPORT ---
Subjective Progress Note for:: 01/23/20 Subjective:: Patie sreekanth had satisfactory bowel movement after laxative administration. He reported no abdominal pain, nausea or vomiting. No chest pain or difficulty with breathing. Sickle cell crisis related pain is adequately controlled on current regimen. Reason For Visit: SICKLE CELL CRISIS Physical Exam Vital Signs: Temp Pulse Resp BP Pulse Ox 97.6 F 83 16 113/59 L 94 01/23/20 13:30 01/23/20 14:00 01/23/20 13:30 01/23/20 13:30 01/23/20 13:30 Intake & Output 01/22/20 01/23/20 01/24/20 06:59 06:59 06:59 Intake Total 3408 536 Output Total 2725 2325 Balance 683 -1789 Weight 88.2 kg 88.2 kg General appearance: PRESENT: no acute distress Eye exam: PRESENT: conjunctiva pink. ABSENT: scleral icterus Mouth exam: PRESENT: moist Respiratory exam: PRESENT: clear to auscultation arron Cardiovascular exam: PRESENT: RRR, +S1, +S2. ABSENT: diastolic murmur, rubs, systolic murmur Vascular exam: ABSENT: pallor GI/Abdominal exam: PRESENT: normal bowel sounds, soft. ABSENT: tenderness Extremities exam: ABSENT: pedal edema Neurological exam: PRESENT: alert, awake, oriented to person, oriented to place, oriented to time, oriented to situation, CN II-XII grossly intact. ABSENT: motor sensory deficit Psychiatric exam: PRESENT: appropriate affect, normal mood. ABSENT: homicidal ideation, suicidal ideation Skin exam: PRESENT: dry, warm Results Laboratory Results: 01/23/20 07:19 01/21/20 04:24 01/22/20 01/23/20 10:08 07:19 WBC 9.9 RBC 2.59 L Hgb 10.6 L D Hct 28.6 L MCV 111 H D MCH 40.8 H MCHC 36.9 H RDW 26.3 H Plt Count 310 Seg Neutrophils % Not Reportable Blood Type O POSITIVE Antibody Screen NEGATIVE 01/21/20 10:45 Clean Catch Midstream Urine Culture - Final NO GROWTH 2 DAYS 01/19/20 21:44 Troponin I < 0.012 Impressions: Chest X-Ray 01/19/20 22:20 IMPRESSION: Interval increase in size of the heart which is enlarged. Ill-defined calcifications projecting over the left heart border. Is unclear if this is within the lung or the myocardium. No pneumonia or edema. KUB X-Ray 01/22/20 00:00 IMPRESSION: Constipation. 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 Is this a current diagnosis for this admission?: Yes (3) Constipation Qualifiers: Constipation type: chronic idiopathic constipation Qualified Code(s): K59.04 - Chronic idiopathic constipation Is this a current diagnosis for this admission?: Yes - Time Time Spent with patient: 25-34 minutes Level of Care: TELE Medications reviewed and adjusted accordingly: Yes Anticipated discharge: Home Within: Other - Inpatient Certification Based on my medical assessment, after consideration of the patient's comorbidities, presenting symptoms, or acuity I expect that the services needed warrant INPATIENT care.: Yes I certify that my determination is in accordance with my understanding of Medicare's requirements for reasonable and necessary INPATIENT services [42 CFR 412.3e].: Yes Medical Necessity: Significant Comorbidiites Make Outpatient Treatment Too Risky, Need Close Monitoring Due to Risk of Patient Decompensation, Need For IV Fluids, Risk of Complication if Not Cared For in Hospital, Risk of Diagnosis Which Will Require Inpatient Eval/Care/Monitoring Post Hospital Care: D/C Sports Physician Documentation - Plan Summary Plan Summary: Continue current medication management. Transition to oral pain medication ad possible d/c home tomorrow.
[2020-01-23] MEDS: NORMAL SALINE 1000 ML 1,000 ML IV PRN (17:11)
[2020-01-24] MEDS: NORMAL SALINE 1000 ML 1,000 ML IV PRN ×2 (01:15→06:50)
[2020-01-24] MEDS: PANTOPRAZOLE SODIUM 40 MG TABLET.DR PO SCH (06:50)
--- NOTE | 2020-01-24 07:46 | PDOC PROGRESS REPORT ---
Subjective Progress Note for:: 01/24/20 Subjective:: Pt feels ready to go home today, does not have oxycodone at home so I will send in rx for him Reason For Visit: SICKLE CELL CRISIS Physical Exam Vital Signs: Temp Pulse Resp BP Pulse Ox 97.9 F 70 18 117/66 99 01/24/20 00:03 01/24/20 02:00 01/24/20 00:03 01/24/20 00:03 01/24/20 00:03 Intake & Output 01/23/20 01/24/20 01/25/20 06:59 06:59 06:59 Intake Total 1536 2948 Output Total 2325 1000 Balance -789 1948 Weight 88.2 kg 88.2 kg General appearance: PRESENT: no acute distress, well-developed, well-nourished Head exam: PRESENT: atraumatic, normocephalic Eye exam: PRESENT: conjunctiva pink, EOMI, PERRLA. ABSENT: scleral icterus Ear exam: PRESENT: normal external ear exam Mouth exam: PRESENT: moist, tongue midline Neck exam: ABSENT: carotid bruit, JVD, lymphadenopathy, thyromegaly Respiratory exam: PRESENT: clear to auscultation arron. ABSENT: rales, rhonchi, wheezes Cardiovascular exam: PRESENT: RRR. ABSENT: diastolic murmur, rubs, systolic murmur Pulses: PRESENT: normal dorsalis pedis pul Vascular exam: PRESENT: normal capillary refill GI/Abdominal exam: PRESENT: normal bowel sounds, soft. ABSENT: distended, guarding, mass, organolmegaly, rebound, tenderness Rectal exam: PRESENT: deferred Extremities exam: PRESENT: full ROM. ABSENT: calf tenderness, clubbing, pedal edema Neurological exam: PRESENT: alert, awake, oriented to person, oriented to place, oriented to time, oriented to situation, CN II-XII grossly intact. ABSENT: motor sensory deficit Psychiatric exam: PRESENT: appropriate affect, normal mood. ABSENT: homicidal i deation, suicidal ideation Skin exam: PRESENT: dry, intact, warm. ABSENT: cyanosis, rash Results Laboratory Results: 01/23/20 07:19 01/21/20 04:24 01/23/20 07:19 WBC 9.9 RBC 2.59 L Hgb 10.6 L D Hct 28.6 L MCV 111 H D MCH 40.8 H MCHC 36.9 H RDW 26.3 H Plt Count 310 Seg Neutrophils % Not Reportable 01/21/20 10:45 Clean Catch Midstream Urine Culture - Final NO GROWTH 2 DAYS 01/19/20 21:44 Troponin I < 0.012 Impressions: Chest X-Ray 01/19/20 22:20 IMPRESSION: Interval increase in size of the heart which is enlarged. Ill-defined calcifications projecting over the left heart border. Is unclear if this is within the lung or the myocardium. No pneumonia or edema. KUB X-Ray 01/22/20 00:00 IMPRESSION: Constipation. 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
[2020-01-24] MEDS: FOLIC ACID 1 MG TABLET PO SCH (09:14)
[2020-01-24] MEDS: ENOXAPARIN SODIUM INJ 40 MG/0.4 ML DISP.SYRIN SUBCUT SCH (09:14)
[2020-01-24] MEDS: DOCUSATE SODIUM 100 MG CAPSULE PO SCH (09:14)
[2020-01-24] MEDS: HYDROXYUREA 500 MG CAPSULE PO SCH (09:15)
[2020-01-24] MEDS: PENICILLIN V POTASSIUM 500 MG TABLET PO SCH (09:15)
--- NOTE | 2020-01-24 13:49 | PDOC DISCHARGE SUMMARY ---
Impression - Admit/DC Date/PCP Admission Date/Primary Care Provider: 01/20/20 02:37 LEON CURTIS Discharge Date: 01/24/20 - Discharge Diagnosis (1) Sickle cell anemia with crisis Is this a current diagnosis for this admission?: Yes (2) Anemia Is this a current diagnosis for this admission?: Yes (3) Constipation Is this a current diagnosis for this admission?: Yes - Assessment Summary: Patient was admitted for back pain and body aches with concern for sickle cell pain crisis. Patient reported no bowel movement for awhile and his KUB x ray revealed significant fecal burden. He was appropriately managed with satisfactory outcome. Patient remain on IV fluid and IV pain medication until yesterday. He has been on oral Percocet therapy with satisfactory pain control. No nausea, vomiting or abdominal pain. No chest pain or difficulty with breathing. He reported no pain. No fever or chills. He is agreeable to discharge home today. he will follow up with [facility] hematology team and myself in the office as instructed upon discharge. - Additional Information Resuscitation Status: Full Code Referrals: LEON CURTIS MD [Primary Care Provider] - 02/05/20 10:00 am HERMINIO CHRISTY MD [ACTIVE STAFF] - Prescriptions: Docusate Sodium [Colace 100 mg Capsule] 2 cap PO QHS #60 capsule Polyethylene Glycol 3350 [Miralax Powder 17 gm/Packet] 17 gm PO DAILYP PRN #30 powd.pack PRN Reason: Oxycodone HCl/Acetaminophen [Percocet 5-325 mg Tablet] 1 tab PO Q6HP PRN #20 tablet PRN Reason: Home Medications: Hydroxyurea 1,000 mg PO BID #60 capsule 05/22/16 Penicillin V Potassium [Penicillin Vk 500 mg Tablet] 500 mg PO BID #60 tablet 05/22/16 Acetaminophen [Tylenol 325 mg Tablet] 650 mg PO Q4HP PRN 01/20/20 Folic Acid 1 mg PO DAILY 01/20/20 Docusate Sodium [Colace 100 mg Capsule] 2 cap PO QHS #60 capsule 01/24/20 Oxycodone HCl/Acetaminophen [Percocet 5-325 mg Tablet] 1 tab PO Q6HP PRN #20 tablet 01/24/20 Polyethylene Glycol 3350 [Miralax Powder 17 gm/Packet] 17 gm PO DAILYP PRN #30 powd.pack 01/24/20 History of Present Illiness History of Present Illness: BELLO HUI is a 39 year old male Is a 39-year-old male with a patient of Dr. Curtis came to the emergency department with acute complaint of back pain and body ache and patient's diagnosed with this acute sickle cell crisis with a reticulocyte count was elevated Patient was giving the IV pain medications and IV fluid and admitting in the hospital Patient is otherwise feeling better Patient still have a pain currently requiring IV pain medications Patient also seen by cognos architect Patient's denied any fever no chills Patient's denied any contact with any COVID Denied any respiratory symptoms Hospital Course Hospital Course: Patient was admitted for back pain and body aches with concern for sickle cell pain crisis. Patient reported no bowel movement for awhile and his KUB x ray revealed significant fecal burden. He was appropriately managed with satisfactory outcome. Patient remain on IV fluid and IV pain medication until yesterday. He has been on oral Percocet therapy with satisfactory pain control. No nausea, vomiting or abdominal pain. No chest pain or difficulty with breathing. He reported no pain. No fever or chills. He is agreeable to discharge home today. he will follow up with [facility] hematology team and myself in the office as instructed upon discharge. Physical Exam Vital Signs: Temp Pulse Resp BP Pulse Ox 97.8 F 70 17 110/50 L 99 01/24/20 11:09 01/24/20 11:09 01/24/20 11:09 01/24/20 11:09 01/24/20 11:09 Intake & Output 01/23/20 01/24/20 01/25/20 06:59 06:59 06:59 Intake Total 1536 2948 1137 Output Total 2325 1000 900 Balance -789 1948 237 Weight 88.2 kg 88.2 kg General appearance: PRESENT: no acute distress Eye exam: PRESENT: conjunctiva pink. ABSENT: scleral icterus Mouth exam: PRESENT: moist Respiratory exam: PRESENT: clear to auscultation arron Cardiovascular exam: PRESENT: RRR, +S1, +S2. ABSENT: diastolic murmur, rubs, systolic murmur Vascular exam: ABSENT: pallor GI/Abdominal exam: PRESENT: normal bowel sounds, soft. ABSENT: tenderness Extremities exam: ABSENT: pedal edema Neurological exam: PRESENT: alert, awake, oriented to person, oriented to place, oriented to time, oriented to situation, CN II-XII grossly intact. ABSENT: motor sensory deficit Psychiatric exam: PRESENT: appropriate affect, normal mood. ABSENT: homicidal ideation, suicidal ideation Skin exam: PRESENT: dry, warm Results Laboratory Results: WBC 9.9 10^3/uL (4.0-10.5) 01/23/20 07:19 RBC 2.59 10^6/uL (4.35-5.55) L 01/23/20 07:19 Hgb 10.6 g/dL (13.5-17.0) L D 01/23/20 07:19 Hct 28.6 % (37.9-51.0) L 01/23/20 07:19 MCV 111 fl (80-97) H D 01/23/20 07:19 MCH 40.8 pg (27.0-33.4) H 01/23/20 07:19 MCHC 36.9 g/dL (32.0-36.0) H 01/23/20 07:19 RDW 26.3 % (11.5-14.0) H 01/23/20 07:19 Plt Count 310 10^3/uL (150-450) 01/23/20 07:19 Lymph % (Auto) Not Reportable 01/23/20 07:19 [place] % (Auto) Not Reportable 01/23/20 07:19 Eos % (Auto) Not Reportable 01/23/20 07:19 Baso % (Auto) Not Reportable 01/23/20 07:19 Reticulocyte # 0.300 10^6/uL (0.028-0.122) H 01/19/20 21:44 Absolute Neuts (auto) Not Reportable 01/23/20 07:19 Absolute Lymphs (auto) Not Reportable 01/23/20 07:19 Absolute Monos (auto) Not Reportable 01/23/20 07:19 Absolute Eos (auto) Not Reportable 01/23/20 07:19 Absolute Basos (auto) Not Reportable 01/23/20 07:19 Total Counted 100 01/23/20 07:19 Seg Neutrophils % Not Reportable 01/23/20 07:19 Seg Neuts % (Manual) 73 % (42-78) 01/23/20 07:19 Lymphocytes % (Manual) 13 % (13-45) 01/23/20 07:19 Atypical Lymphs % 1 % (0) 01/23/20 07:19 Monocytes % (Manual) 7 % (3-13) 01/23/20 07:19 Eosinophils % (Manual) 6 % (0-6) 01/23/20 07:19 Basophils % (Manual) 0 % (0-2) 01/23/20 07:19 Abs Neuts (Manual) 7.2 10^3/uL (1.7-8.2) 01/23/20 07:19 Abs Lymphs (Manual) 1.4 10^3/uL (0.5-4.7) 01/23/20 07:19 Abs Monocytes (Manual) 0.7 10^3/uL (0.1-1.4) 01/23/20 07:19 Absolute Eos (Manual) 0.6 10^3/uL (0.0-0.6) 01/23/20 07:19 Abs Basophils (Manual) 0.0 10^3/uL (0.0-0.2) 01/23/20 07:19 Nucleated RBCs 5 /100 WBC (0) 01/22/20 05:45 Hypersegmented Neuts PRESENT 01/21/20 04:24 Large Platelets PRESENT 01/22/20 05:45 Platelet Comment ADEQUATE 01/23/20 07:19 Polychromasia 1+ 01/23/20 07:19 Poikilocytosis 2+ 01/23/20 07:19 Anisocytosis 3+ 01/23/20 07:19 Macrocytosis 2+ 01/23/20 07:19 Pappenheimer Bodies PRESENT 01/22/20 05:45 Sickle Cells SLIGHT 01/23/20 07:19 Target Cells SLIGHT 01/22/20 05:45 Tear Drop Cells SLIGHT 01/23/20 07:19 Ovalocytes 1+ 01/23/20 07:19 [place] Bodies PRESENT 01/22/20 05:45 [place] Cells SLIGHT 01/19/20 21:44 Retic Count (auto) 15.11 % (0.66-2.85) H 01/19/20 21:44 Sodium 138.8 mmol/L (137-145) 01/21/20 04:24 Potassium 4.3 mmol/L (3.6-5.0) 01/21/20 04:24 Chloride 108 mmol/L (98-107) H 01/21/20 04:24 Carbon Dioxide 24 mmol/L (22-30) 01/21/20 04:24 Anion Gap 7 (5-19) 01/21/20 04:24 BUN 10 mg/dL (7-20) 01/21/20 04:24 Creatinine 0.62 mg/dL (0.52-1.25) 01/21/20 04:24 Est GFR ( Amer) > 60 (>60) 01/21/20 04:24 Est GFR (MDRD) Non-Af > 60 (>60) 01/21/20 04:24 Glucose 91 mg/dL (75-110) 01/21/20 04:24 Calcium 9.2 mg/dL (8.4-10.2) 01/21/20 04:24 Total Bilirubin 8.5 mg/dL (0.2-1.3) H 01/21/20 04:24 Direct Bilirubin 1.5 mg/dL (0.0-0.4) H 01/21/20 04:24 Neonat Total Bilirubin Not Reportable 01/21/20 04:24 Neonat Direct Bilirubin Not Reportable 01/21/20 04:24 Neonat Indirect Bili Not Reportable 01/21/20 04:24 AST 49 U/L (17-59) 01/21/20 04:24 ALT 31 U/L (<50) 01/21/20 04:24 Alkaline Phosphatase 97 U/L (38-126) 01/21/20 04:24 Troponin I < 0.012 ng/mL 01/19/20 21:44 Total Protein 6.6 g/dL (6.3-8.2) 01/21/20 04:24 Albumin 4.3 g/dL (3.5-5.0) 01/21/20 04:24 Urine Color YELLOW 01/20/20 11:45 Urine Appearance CLEAR 01/20/20 11:45 Urine pH 6.0 (5.0-9.0) 01/20/20 11:45 Ur Specific [place] 1.010 01/20/20 11:45 Urine Protein NEGATIVE mg/dL (NEGATIVE) 01/20/20 11:45 Urine Glucose (UA) NEGATIVE mg/dL (NEGATIVE) 01/20/20 11:45 Urine Ketones NEGATIVE mg/dL (NEGATIVE) 01/20/20 11:45 Urine Blood NEGATIVE (NEGATIVE) 01/20/20 11:45 Urine Nitrite NEGATIVE (NEGATIVE) 01/20/20 11:45 Urine Bilirubin NEGATIVE (NEGATIVE) 01/20/20 11:45 Urine Urobilinogen 4.0 mg/dL (<2.0) H 01/20/20 11:45 Ur Leukocyte Esterase NEGATIVE (NEGATIVE) 01/20/20 11:45 Urine WBC (Auto) 2 /HPF 01/20/20 11:45 Urine RBC (Auto) 0 /HPF 01/20/20 11:45 Urine Mucus (Auto) RARE /LPF 01/20/20 11:45 Urine Ascorbic Acid NEGATIVE (NEGATIVE) 01/20/20 11:45 Slides for Path Review PATHOLOGIST REVIEWED 01/19/20 21:44 Blood Type O POSITIVE 01/22/20 10:08 Antibody Screen NEGATIVE 01/22/20 10:08 Crossmatch See Detail 01/22/20 10:08 01/19/20 21:44 Troponin I < 0.012 Impressions: Chest X-Ray 01/19/20 22:20 IMPRESSION: Interval increase in size of the heart which is enlarged. Ill-defined calcifications projecting over the left heart border. Is unclear if this is within the lung or the myocardium. No pneumonia or edema. KUB X-Ray 01/22/20 00:00 IMPRESSION: Constipation. Plan Health Concerns: High risk for readmission due to his morbidity and recurrent crisis. Plan of Treatment: Maintain on preadmission medication management and bowel movement regimen. Goals: Reduce readmission risk with close outpatient follow up. Time Spent: Less than 30 Minutes Stroke Is this a Stroke Patient?: No Acute Heart Failure - Is this a Heart Failure Patient?: No
[2020-01-24 14:28] VITALS: BP 114/55
== END 2020-01-24 14:42 | disposition home or self-care (01) | DRG 812 ==
LOC: ER 18:15 → EH 01-20 02:37 → 4N 01-20 03:40
PROVIDERS: ADMIT Internal Medicine Geriatric Medicine; ATTEND Internal Medicine Geriatric Medicine
PROC: 30233N1 Transfusion of Nonautologous Red Blood Cells into Peripheral Vein, Percutaneous Approach (ICD-10-PCS; principal; 2020-01-22)
DX: D57.00 Hb-SS disease with crisis, unspecified (principal); K59.04 Chronic idiopathic constipation; Z79.899 Other long term (current) drug therapy; Z88.1 Allergy status to other antibiotic agents; Z91.041 Radiographic dye allergy status
CPT/HCPCS: 36415; 36430; 36591; 71045; 74018; 80053; 81001; 84484; 85025; 85045; 86850; 86900; 86901; 86920; 87040; 87086; 93005; 93010; 96361; 96374; 96375; 96376; 99285; J1170; J1650; J1940; J2405; J3490; J7030; J7120; P9016